=== PATIENT | male | born 1990 | race Caucasian/White ===

== ENCOUNTER 2022-09-25 02:09 | Emergency (ER) | payer BC ==
[2022-09-25 02:16] VITALS: BP 148/94; PULSE 112; RESP 18; TEMP 97.6; BMI 31.5
[2022-09-25] MEDS ORDERED: ACETAMINOPHEN 500 MG TABLET (FP) PO ONE (02:58)
[2022-09-25] MEDS ORDERED: ACETAMINOPHEN 500 MG TABLET (FP) ONE (03:13)
[2022-09-25] MEDS ORDERED: DIPHTH,PERTUSS(ACELL),TET 0.5 ML DISP.SYRIN IM ONE ×2 (04:52→04:54)
== END 2022-09-25 05:17 | disposition home or self-care (01) ==
LOC: JER 02:09
PROC: 3E0234Z Introduction of Serum, Toxoid and Vaccine into Muscle, Percutaneous Approach (ICD-10-PCS; principal; 2022-09-25)
DX: S01.511A Laceration without foreign body of lip, initial encounter (principal); W01.0XXA Fall on same level from slipping, tripping and stumbling without subsequent striking against object, initial encounter
CPT/HCPCS: 90715; 99284-25